=== PATIENT | male | born 1940 | race Caucasian/White ===

== ENCOUNTER 2018-02-27 10:49 | Emergency (ER) | payer MEDICARE ==
[~2018-02-27] VITALS: Ht 175.3 cm; Wt 83.9 kg
[~2018-02-27 10:49] MED LIST: ASPI81EC PO; ATOR10; SIMV10 PO; WARF6 PO
[2018-02-27 12:04] LABS: BASOPHILS ABSOLUTE AUTO 0.03 K/mm3 (0.00-0.23); BASOPHILS PERCENT AUTO 0 % (0-2); EOSINOPHILS ABSOLUTE AUTO 0.02 K/mm3 (0.00-0.68); EOSINOPHILS PERCENT AUTO 0 % (0-6); Hematocrit 37.1 % (37.0-53.0); Hemoglobin 12.8 g/dL (13.5-17.5); IMMATURE GRAN ABSOLUTE AUTO 0.02 K/mm3 (0.00-0.10); IMMATURE GRAN PERCENT AUTO 0 % (0-1); LYMPHOCYTES PERCENT AUTO 26 % (21-46); MONOCYTES PERCENT AUTO 10 % (4-13); Mean Corpuscular HGB 33.9 pg (26.0-34.0); Mean Corpuscular HGB Conc 34.5 g/dL (31.5-36.5); Mean Corpuscular Volume 98 fL (80-100); Mean Platelet Volume 10.3 fL (9.1-12.4); NEUTROPHILS ABSOLUTE AUTO 4.97 K/mm3 (1.96-9.15); NEUTROPHILS PERCENT AUTO 63 % (41-73); Platelet Count 191 K/mm3 (150-400); RDW Coefficient Variation 12.9 % (11.7-14.2); RDW Standard Deviation 46.5 fL (35.1-46.3); Red Blood Cell Count 3.78 M/mm3 (4.30-5.90); White Blood Cell Count 7.84 K/mm3 (4.00-11.30)
[2018-02-27 12:18] LABS: Anion Gap 9 mmol/L (6-16); Blood Urea Nitrogen 12 mg/dL (8-24); Bun/Creatinine Ratio 13.6 (12.0-20.0); CO2, Blood 23 mmol/L (21-32); Calcium, Blood 7.7 mg/dL (8.5-10.1); Chloride, Blood 104 mmol/L (98-108); Creatinine, Blood 0.88 mg/dL (0.60-1.20); Glomerular Filtration Rate >60 (60-); Glucose, Blood 94 mg/dL (70-99); Potassium, Blood 3.9 mmol/L (3.5-5.5); Sodium, Blood 136 mmol/L (136-145)
[2018-02-27 12:20] LABS: International Normalized Ratio 2.17; Prothrombin Time Results 21.4 Sec (9.7-11.5)
== END 2018-02-27 13:19 | disposition home or self-care (01) ==
LOC: ER 10:49
PROVIDERS: Emergency Medicine
DX: R31.9 Hematuria, unspecified (principal); Z86.711 Personal history of pulmonary embolism; Z79.899 Other long term (current) drug therapy; Z79.82 Long term (current) use of aspirin; Z79.01 Long term (current) use of anticoagulants
CPT/HCPCS: 36415; 80048; 85025; 85610; 93005; 93010; J7030

== ENCOUNTER → 2021-03-26 | Outpatient (CLI) | payer MEDICARE ==
[2021-03-27 09:47] LABS: Stool Occult Bld Immuno 1 Negative (NEGATIVE); Stool Occult Bld Immuno 2 Negative (NEGATIVE); Stool Occult Bld Immuno 3 Negative (NEGATIVE)
== END | disposition home or self-care (01) ==
LOC: LAB SHORT 13:41 → LAB 13:41
PROVIDERS: Physician Assistant
DX: D50.9 Iron deficiency anemia, unspecified (principal)
CPT/HCPCS: 82274

== ENCOUNTER → 2021-10-08 | Outpatient (CLI) | payer MEDICARE | END | disposition home or self-care (01) | LOC: LAB SHORT 14:52 | DX: D04.5 Carcinoma in situ of skin of trunk (principal); L81.4 Other melanin hyperpigmentation | CPT/HCPCS: 88305 ==

== ENCOUNTER 2023-11-24 09:45 | Day surgery (SDC) | payer MEDICARE ==
[~2023-11-24] VITALS: Ht 175.3 cm; Wt 81.9 kg
[~2023-11-24 09:45] MED LIST changes: +Balanced Salt Epinephrine Irrigation Solution 500 mL IR SCH; +FINA5 PO; +Flomax0.4 MG PO; +IRON18 MG PO; +Lidocaine HCl/Pf 1% 5 ML VIAL XX SCH; +Moxifloxacin HCL 0.5 MG/0.1 ML 0.4MLSYR RIGHTEYE SCH; +NS 500 ML IV ONE; +PHENYLEPHRINE\\TROPICAMIDE\\TETRACAINE OPHTHALMIC DILATING SOLN RIGHTEYE PRN; +Povidone-Iodine 450 DROP/30 ML Solution ONE; +Povidone-Iodine 450 DROP/30 ML Solution RIGHTEYE SCH; +WARF1; +ZOCOR20 MG PO
[2023-11-24] MEDS ORDERED: ELIQUIS5 M3 PO (10:03)
[2023-11-24] MEDS ORDERED: ASCO500 PO (10:05)
[2023-11-24] MEDS ORDERED: VITAMIN D325 MC3 PO (10:06)
[2023-11-24] MEDS ORDERED: NS 500 ML IV ONE (10:10)
[2023-11-24] MEDS ORDERED: Tetracaine HCl 0.5% Opth Soln 15 ml RIGHTEYE ONE (10:34)
[2023-11-24] MEDS ORDERED: FentaNYL Citrate 50 MCG/ML 2 ML Injection ONE (10:34)
[2023-11-24] MEDS ORDERED: Midazolam HCl 1MG / ML 2ML Vial ONE (10:35)
[2023-11-24 10:55] VITALS: BP 129/70
== END 2023-11-24 11:07 | disposition home or self-care (01) ==
LOC: ORSCSDS 09:45
PROVIDERS: Student in an Organized Health Care Education/Training Program
PROC: 08RJ3JZ Replacement of Right Lens with Synthetic Substitute, Percutaneous Approach (ICD-10-PCS; principal; 2023-11-24 11:00)
DX: H25.13 Age-related nuclear cataract, bilateral (principal); N40.0 Benign prostatic hyperplasia without lower urinary tract symptoms; Z79.82 Long term (current) use of aspirin; Z86.711 Personal history of pulmonary embolism; Z79.01 Long term (current) use of anticoagulants; Z79.899 Other long term (current) drug therapy; Z87.891 Personal history of nicotine dependence
CPT/HCPCS: J2250; J3010; J7040; V2632

== ENCOUNTER 2023-12-08 09:25 | Day surgery (SDC) | payer MEDICARE ==
[~2023-12-08] VITALS: Ht 175.3 cm; Wt 82.6 kg
[~2023-12-08 09:25] MED LIST changes: +ASCO500 PO; +ELIQUIS5 M3 PO; +Moxifloxacin HCL 0.5 MG/0.1 ML 0.4MLSYR LEFTEYE SCH; -Moxifloxacin HCL 0.5 MG/0.1 ML 0.4MLSYR RIGHTEYE SCH; +PHENYLEPHRINE\\TROPICAMIDE\\TETRACAINE OPHTHALMIC DILATING SOLN LEFTEYE PRN; -PHENYLEPHRINE\\TROPICAMIDE\\TETRACAINE OPHTHALMIC DILATING SOLN RIGHTEYE PRN; +Povidone-Iodine 450 DROP/30 ML Solution LEFTEYE SCH; -Povidone-Iodine 450 DROP/30 ML Solution RIGHTEYE SCH; +VITAMIN D325 MC3 PO
[2023-12-08] MEDS ORDERED: NS 500 ML IV ONE (10:20)
--- NOTE | 2023-12-08 10:20 | NUR ---
12/08/23 1020 Melany Chauhan AT 1014 PLEDGET AT 1015
[2023-12-08] MEDS ORDERED: FentaNYL Citrate 50 MCG/ML 2 ML Injection ONE (10:30)
[2023-12-08] MEDS ORDERED: Tetracaine HCl 0.5% Opth Soln 15 ml LEFTEYE ONE (10:48)
[2023-12-08 11:24] VITALS: BP 133/70
== END 2023-12-08 10:22 | disposition home or self-care (01) ==
LOC: ORSCSDS 09:25
PROVIDERS: Student in an Organized Health Care Education/Training Program
PROC: 08RK3JZ Replacement of Left Lens with Synthetic Substitute, Percutaneous Approach (ICD-10-PCS; principal; 2023-12-08 11:00)
DX: H25.12 Age-related nuclear cataract, left eye (principal); Z96.1 Presence of intraocular lens; Z79.82 Long term (current) use of aspirin; Z79.01 Long term (current) use of anticoagulants; Z79.899 Other long term (current) drug therapy
CPT/HCPCS: J3010; J7040; V2632

== ENCOUNTER 2025-05-15 09:01 | Day surgery (SDC) | payer OTHER ==
[2025-04-27 09:21] VITALS: BP 134/70
[2025-05-15] VITALS (16 sets, daily range): BP systolic 80–149; BP diastolic 54–88
[~2025-05-15] VITALS: Ht 175.3 cm; Wt 80.9 kg
[~2025-05-15 09:01] MED LIST changes: +Aspir 8181 MG PO; -Balanced Salt Epinephrine Irrigation Solution 500 mL IR SCH; +ELIQUIS5 M2 PO; -Lidocaine HCl/Pf 1% 5 ML VIAL XX SCH; -Moxifloxacin HCL 0.5 MG/0.1 ML 0.4MLSYR LEFTEYE SCH; -NS 500 ML IV ONE; -PHENYLEPHRINE\\TROPICAMIDE\\TETRACAINE OPHTHALMIC DILATING SOLN LEFTEYE PRN; -Povidone-Iodine 450 DROP/30 ML Solution LEFTEYE SCH; -Povidone-Iodine 450 DROP/30 ML Solution ONE
[2025-05-15] MEDS ORDERED: Tranexamic Acid 100 ML IV SCH (09:15)
[2025-05-15] MEDS ORDERED: Ropivacaine 0.5% HCl/Pf 123.125 MG,EPINEPHrine HCL 0.25 MG,Ketorolac Tromethamine 15 MG... INFIL SCH (09:15)
[2025-05-15] MEDS ORDERED: CeFAZolin Sodium 2,000 MG in NS 100 ML IV SCH ×2 (09:15→20:00)
[2025-05-15] MEDS ORDERED: Chlorhexidine Mouth Care 15 ML UDC MT SCH (09:15)
--- NOTE | 2025-05-15 09:57 | NUR ---
Ambulatory in Day Surgery Patient confirms NPO status and agrees with scheduled surgery. Pre-Op teaching done. Pt verbalizes understanding. History, Chart, Medications and Allergies reviewed before start of procedure. Patient reports completing Chlorhexadine shower X2 prior to admission to hospital.Patient States Post-Procedure ride home has been arranged.
[2025-05-15] MEDS ORDERED: Prochlorperazine Edisylate 10 mg Vial IV PRN (10:15)
[2025-05-15] MEDS ORDERED: Metoclopramide HCl 5MG / ML 2ML Vial IV PRN (10:15)
[2025-05-15] MEDS ORDERED: Magnesium Hydroxide Conc 10 ML UDC PO PRN (10:15)
[2025-05-15] MEDS ORDERED: FLU VACC TS2025(65UP)/MF59C/PF 45 MCG/0.5 ML SYRINGE IM SCH (10:20)
[2025-05-15] MEDS ORDERED: HYDROmorphone HCl/Pf 1MG SYR IV PRN (10:20)
[2025-05-15] MEDS ORDERED: Ondansetron HCl 2 MG / ML 2ML Vial IV PRN ×2 (10:20→12:30)
[2025-05-15] MEDS ORDERED: Phenylephrine HCl 100 MCG/ML-NS 10MLSYR (1MG/10ML) ONE (11:43)
[2025-05-15] MEDS ORDERED: ePHEDrine Sulfate 50 MG/ML 1ML Injection ONE (11:44)
[2025-05-15] MEDS ORDERED: Dexamethasone Sod Phos 10 MG/ML 1ML VIAL ONE (11:52)
[2025-05-15] MEDS ORDERED: Ketorolac Tromethamine 15mg Vial IV SCH (12:00)
[2025-05-15] MEDS ORDERED: FentaNYL Citrate 50 MCG/ML 2 ML Injection IV PRN ×3 (12:25)
--- NOTE | 2025-05-15 13:33 | NUR ---
POST OP ARRIVAL TO SURGICAL UNIT VIA HOSPITAL BED. ALERT, ORIENTED, & PLEASANT. ASSESSMENT CHARTED. DENIES PAIN. UNABLE TO WIGGLE TOES. DENIES N/V SO SNACKS & DRINKS GIVEN. CRYOTHERAPY IN PLACE.
--- NOTE | 2025-05-15 18:24 | NUR ---
SHIFT SUMMARY UNFORTUNATLY PT CAN BARELY RAISE SURGICAL LEG AT THIS TIME DUE TO SPINAL & REPORTS IT FEELING VERY HEAVY. DENIES PAIN. EATING & DRINKING WELL SO IV SL. MONITORING FOR POST OP VOID.
[2025-05-15] MEDS ORDERED: Lidocaine 2% Jelly Uro-Jet UR ONE (23:35)
[2025-05-16] MEDS ORDERED: Lidocaine 2% Jelly Uro-Jet UR ONE (00:20)
[2025-05-16 00:42] VITALS: BP 116/68
--- NOTE | 2025-05-16 01:21 | NUR ---
BLADDER SCAN REVEALED 944ML AT 2208. ATTEMPTED 16 SERBIAN CATHETER, EXPERIENCED RESISTANCE, HAD PT TAKE A DEEP BREATH AND EXHALE, ADVANCED CATHETER WITH LISA RED BLOOD DRAINING. CONSULTED VIPIN BULLOCK RN AND CHARGE NURSE. MULTIPLE ATTEMPTS WITH COUDE W/O SUCCESS. PT CONTINUES TO BLEED WITH CLOTS PRESENT. PT DENIES PAIN. UROLOGY CONTACTED AWAITING FOLLOW UP.
[2025-05-16 04:13] VITALS: BP 109/62
--- NOTE | 2025-05-16 05:04 | NUR ---
PROVIDER ARRIVED TO UNIT CONSULTED PT. PROVIDER PLACED 16 ROMANSH DANIELLE SHOALWATER TIP DANIELLE UTILIZING CYSTOSCOPE. PT TOLERATED PROCEDURE WELL. INTITIAL DRAK PURPLE URINE CHANGING TO LIGHT PINK DRAINING TO GRAVITY.
[2025-05-16 05:08] LABS: BASOPHILS ABSOLUTE AUTO 0.02 K/mm3 (0.00-0.23); BASOPHILS PERCENT AUTO 0 % (0-2); EOSINOPHILS ABSOLUTE AUTO 0.00 K/mm3 (0.00-0.68); EOSINOPHILS PERCENT AUTO 0 % (0-6); Hematocrit 37.5 % (37.0-53.0); Hemoglobin 12.7 g/dL (13.5-17.5); IMMATURE GRAN ABSOLUTE AUTO 0.08 K/mm3 (0.00-0.10); IMMATURE GRAN PERCENT AUTO 1 % (0-1); LYMPHOCYTES ABSOLUTE AUTO 1.46 K/mm3 (0.84-5.20); LYMPHOCYTES PERCENT AUTO 9 % (21-46); MONOCYTES ABSOLUTE AUTO 1.87 K/mm3 (0.16-1.47); MONOCYTES PERCENT AUTO 11 % (4-13); Mean Corpuscular HGB Conc 33.9 g/dL (31.5-36.5); Mean Corpuscular Volume 99 fL (80-100); NEUTROPHILS ABSOLUTE AUTO 13.25 K/mm3 (1.96-9.15); NEUTROPHILS PERCENT AUTO 79 % (41-73); NRBC ABSOLUTE 0.00 K/mm3 (0.00-0.02); NRBC Auto 0.0 /100 WBC (0.0-0.2); Platelet Count 186 K/mm3 (150-400); RDW Coefficient Variation 12.1 % (11.7-14.2); RDW Standard Deviation 44.1 fL (35.1-46.3)
[2025-05-16 05:27] LABS: Anion Gap 9.0 mmol/L (3-11); Blood Urea Nitrogen 23.0 mg/dL (8-24); CO2, Blood 25.0 mmol/L (21-32); Calcium, Blood 8.0 mg/dL (8.5-10.1); Chloride, Blood 103.0 mmol/L (98-108); Creatinine, Blood 1.32 mg/dL (0.60-1.20); Glucose, Blood 140.0 mg/dL (70-99); Magnesium, Blood 2.1 mg/dL (1.6-2.4); Potassium, Blood 4.4 mmol/L (3.5-5.5); Sodium, Blood 133.0 mmol/L (136-145)
--- NOTE | 2025-05-16 05:42 | NUR ---
SHIFT SUMMARY POD1 R TOTAL HIP ARTHROPLASTY. PRINEO DRESSING C/D/I. PT PAIN MANAGED PER EMAR. POLAR PACK IN PLACE. PT REQUIRED DANIELLE PLACEMENT DUE TO RETENTION SEE PREVIOUS NOTE. DANIELLE IS PATENT AND DRAINING LIGHT PINK URINE TO GRAVITY. PT PLAN OF CARE ONGONIG. CALL LIGHT WITHIN REACH.
[2025-05-16 07:28] VITALS: BP 76/64
[2025-05-16 07:30] VITALS: BP 132/56
[2025-05-16] MEDS ORDERED: DOCU100 PO (09:47)
[2025-05-16] MEDS ORDERED: ACET500 PO (09:47)
[2025-05-16] MEDS ORDERED: OXYC5 PO (09:48)
--- NOTE | 2025-05-16 11:14 | NUR ---
PT DC'D@1023 ASSUMED CARE @0700. AXO4. VSS. R HIP PRINEO CDI. AMBULATED WILL WITH PHYSICAL THERAPY. PT REPORTED FULL RENSATION TO BLE'S. CATHETER WITH SCANT RED DRAINAGE AROUND URETHRA - CLEANSED, DANIELLE BAG WITH MED PINK DRAINAGE - NO CLOTS NOTED. TOLERATING PO INTAKE WELL. STATES PAIN WELL CONTROLLED. WANTING TO GO HOME. DC INSTRUCTIONS PROVIDED WITH FAMILY IN ROOM. PT PROVIDED WITH AQUACEL IF NEEDED, SWITCHED OVER TO LEG BAG DANIELLE. INSTRUCTED REGARDING UROLOGY AND ORTHO FOLLOWUP. INSTRUCTED REGARDING DANIELLE MAINTENANCE - PROVIDED WITH EXTRA STATLOCK, CATHETER CLEANING WIPES, ALCOHOL SWABS. VSS. PT WHEELED OUT OF ROOM TO CAR @1023 WITH BELONGINGS IN HAND.
== END 2025-05-16 10:27 | disposition home or self-care (01) ==
LOC: SURS 09:01 → ORSCMMR 09:01 → ORD 10:30 → SURS 13:26 → ORSCMMR 05-16 10:27
PROVIDERS: Orthopaedic Surgery
PROC: 0SR90JA Replacement of Right Hip Joint with Synthetic Substitute, Uncemented, Open Approach (ICD-10-PCS; principal; 2025-05-15 10:30)
DX: M16.11 Unilateral primary osteoarthritis, right hip (principal); I10 Essential (primary) hypertension; Z87.891 Personal history of nicotine dependence; N40.0 Benign prostatic hyperplasia without lower urinary tract symptoms; Z79.899 Other long term (current) drug therapy; Z86.711 Personal history of pulmonary embolism; Z79.01 Long term (current) use of anticoagulants
CPT/HCPCS: 36415; 72170; 80048; 83735; 85025; 97116; 97162; 97530; A9270; C1776; J0166; J0690; J0735; J1100; J1885; J2371; J2405; J2704; J2795; J7120